=== PATIENT | male | born 1995 | race Caucasian/White ===

== ENCOUNTER 2019-07-14 11:50 | Emergency (ER) | payer MEDICARE ==
[~2019-07-14] VITALS: Ht 188 cm; Wt 114.0 kg
[2019-07-14 11:52] VITALS: BP 167/101
== END 2019-07-14 12:36 | disposition home or self-care (01) ==
LOC: ER 11:51
DX: R41.9 Unspecified symptoms and signs involving cognitive functions and awareness (principal); R09.81 Nasal congestion; R51 Headache; K21.9 Gastro-esophageal reflux disease without esophagitis; Z87.891 Personal history of nicotine dependence
CPT/HCPCS: 99284

== ENCOUNTER 2019-07-16 20:59 | Emergency (ER) | payer MEDICARE ==
[~2019-07-16] VITALS: Ht 188 cm; Wt 113.0 kg
[2019-07-16 21:06] VITALS: BP 159/79
== END 2019-07-16 23:25 | disposition home or self-care (01) ==
LOC: ER 21:00
DX: R10.9 Unspecified abdominal pain (principal); K21.9 Gastro-esophageal reflux disease without esophagitis; F41.9 Anxiety disorder, unspecified
CPT/HCPCS: 93005; 99283